=== PATIENT | female | born 1935 | race Caucasian/White ===

== ENCOUNTER 2021-02-05 11:58 | Inpatient (IN) ==
[2021-02-05] MEDS ORDERED: Fluorescein Sodium STRIP OP ONE (12:35)
[2021-02-05] MEDS ORDERED: Tetracaine 0.5% OPTH 80 DROP/4 ML BOTTLE LEFT EYE ONE (12:35)
[2021-02-05] MEDS ORDERED: Acyclovir 500 MG in D5% in Water 100 ML IVPB ONE (14:30)
[2021-02-05] MEDS ORDERED: Erythromycin OPTH Oint LEFT EYE ONE (15:00)
[2021-02-05 15:26] LABS: Basophils % 0.7 %; Eosinophils % 0.4 %; Hematocrit 41.1 % (35.3-44.9); Hemoglobin 13.3 g/dL (11.5-15.4); Immature Granulocytes % 0.6 % (0-4); Lymphocytes # 1.7 K/mcL (0.6-4.6); Lymphocytes % 31.5 %; Mean Corpuscular HGB Conc 32.4 g/dL (31.6-35.5); Mean Corpuscular Hemoglobin 27.1 pg (28.0-33.3); Mean Corpuscular Volume 83.9 fL (83.0-100.0); Mean Platelet Volume 9.7 fL (9.4-12.4); Monocytes # 0.6 K/mcL (0.0-1.3); Monocytes % 11.9 %; Platelet Count 148 K/mcL (140-400); Red Cell Distribution Width 13.8 % (11.5-14.5); Segmented Neutrophils % 54.9 %; White Blood Count 5.4 K/mcL (4.3-11.1)
[2021-02-05] MEDS ORDERED: Ondansetron ODT 4 MG TAB.RAPDIS SL PRN (15:26)
[2021-02-05] MEDS ORDERED: Acetaminophen 325 MG TABLET PO PRN (15:26)
[2021-02-05] MEDS ORDERED: Naloxone 0.4 MG/ML INJ IVP PRN (15:26)
[2021-02-05 15:41] LABS: Calcium 8.9 mg/dL (8.6-10.3); Potassium 3.9 mEq/L (3.5-5.1)
[2021-02-05] MEDS ORDERED: Acyclovir 500 MG in D5% in Water 100 ML IVPB SCH (16:00)
[2021-02-05 16:28] LABS: Platelet Estimate Normal (Normal); Reactive Lymphocytes Present (Not Present)
[2021-02-05] MEDS: Erythromycin OPTH Oint LEFT EYE SCH (22:09)
[2021-02-05] MEDS: Latanoprost 2.5 ML BOTTLE BOTH EYES SCH (22:09)
[2021-02-05] MEDS: WATER IVPB SCH (23:22)
[2021-02-05] MEDS: ACYCLOVIR IVPB SCH (23:22)
[2021-02-05] MEDS: D5 IVPB SCH (23:22)
[2021-02-06] MEDS: ACYCLOVIR IVPB SCH (07:20)
[2021-02-06] MEDS: WATER IVPB SCH (07:20)
[2021-02-06] MEDS: D5 IVPB SCH (07:20)
[2021-02-06] MEDS: Erythromycin OPTH Oint LEFT EYE SCH ×3 (07:21→20:14)
[2021-02-06 07:23] LABS: Hematocrit 36.3 % (35.3-44.9); Hemoglobin 12.1 g/dL (11.5-15.4); Mean Corpuscular HGB Conc 33.3 g/dL (31.6-35.5); Mean Corpuscular Hemoglobin 27.5 pg (28.0-33.3); Mean Corpuscular Volume 82.5 fL (83.0-100.0); Mean Platelet Volume 9.7 fL (9.4-12.4); Platelet Count 157 K/mcL (140-400); Red Cell Distribution Width 13.7 % (11.5-14.5); White Blood Count 6.6 K/mcL (4.3-11.1)
[2021-02-06 07:40] LABS: Calcium 8.3 mg/dL (8.6-10.3); Magnesium 1.8 mg/dL (1.6-2.6)
[2021-02-06] MEDS ORDERED: Magic Mouthwash 10 ML UD Cup PO PRN (18:26)
[2021-02-06] MEDS: Latanoprost 2.5 ML BOTTLE BOTH EYES SCH (20:13)
[2021-02-07] MEDS ORDERED: *HR* Enoxaparin 30 MG/0.3 ML SYRINGE SQ SCH (06:00)
[2021-02-07 06:58] LABS: Basophils % 0.3 %; Eosinophils % 0.6 %; Hematocrit 34.1 % (35.3-44.9); Hemoglobin 11.7 g/dL (11.5-15.4); Immature Granulocytes % 0.5 % (0-4); Lymphocytes # 2.8 K/mcL (0.6-4.6); Lymphocytes % 43.2 %; Mean Corpuscular HGB Conc 34.3 g/dL (31.6-35.5); Mean Corpuscular Hemoglobin 28.3 pg (28.0-33.3); Mean Corpuscular Volume 82.4 fL (83.0-100.0); Mean Platelet Volume 10.3 fL (9.4-12.4); Monocytes # 0.6 K/mcL (0.0-1.3); Monocytes % 9.5 %; Platelet Count 159 K/mcL (140-400); Red Blood Count 4.14 M/mcL (3.82-4.97); Red Cell Distribution Width 13.4 % (11.5-14.5); Segmented Neutrophils % 45.9 %; White Blood Count 6.5 K/mcL (4.3-11.1)
[2021-02-07] MEDS ORDERED: WATER IVPB SCH (07:00)
[2021-02-07] MEDS ORDERED: ACYCLOVIR IVPB SCH (07:00)
[2021-02-07] MEDS ORDERED: D5 IVPB SCH (07:00)
[2021-02-07] MEDS ORDERED: *HR* Enoxaparin 40 MG/0.4 ML SYRINGE SQ SCH (07:00)
[2021-02-07 07:10] LABS: Calcium 8.3 mg/dL (8.6-10.3); Magnesium 1.8 mg/dL (1.6-2.6)
[2021-02-07] MEDS: Erythromycin OPTH Oint LEFT EYE SCH (07:11)
[2021-02-07 07:25] LABS: Platelet Estimate Normal (Normal); Reactive Lymphocytes Present (Not Present)
[2021-02-07 10:47] VITALS: BP 115/66
== END 2021-02-07 14:09 | disposition home or self-care (01) | DRG 125 ==
LOC: EMEROOARM 11:58 → 3BNU 11:58 → SUATTDRO 15:16 → 3BNU 17:21 → SUATTDRO 02-06 17:35
PROVIDERS: ADMIT Internal Medicine; ATTEND Internal Medicine